=== PATIENT | male | born 1950 | race Two or more races ===

== ENCOUNTER 2016-06-21 10:34 | Emergency (ER) | payer OTHER ==
[~2016-06-21] VITALS: Ht 177.8 cm; Wt 74.5 kg
[~2016-06-21 10:34] MED LIST: ALEN70TA15 PO; ASPI81TA3 PO; CALC600T5 PO; HYDR-762 PO; LOSA100T7 PO; ROTI1PAT7 TD; SUMA50TA3 PO
[2016-06-21 10:36] VITALS: Ht 177.8 cm; Wt 74.5 kg
[2016-06-21] MEDS ORDERED: morphine 4 MG/ML VIAL IV STA ×2 (11:11→13:41)
[2016-06-21] MEDS ORDERED: ONDANSETRON 4 MG INJ IV STA (11:11)
--- NOTE | 2016-06-21 12:32 | RADRPT ---
PROCEDURE: Right knee series. CLINICAL INDICATION: Right knee pain TECHNIQUE: Three views of the right knee are available for review. COMPARISON: None available FINDINGS: There is normal mineralization and alignment of the bones of the right knee. No acute fracture or d islocation is identified. No joint effusion is seen. Overlying soft tissues are unremarkable. IMPRESSION: 1. Unremarkable right knee x-ray series. RPTAT: KK .Cristian Perez MD, MD Date Time Electronically viewed and signed by .Cristian Perez MD, MD on 06/21/2016 12:31 .B/
--- NOTE | 2016-06-21 12:33 | RADRPT ---
PROCEDURE: Left knee series. CLINICAL INDICATION: Left knee pain TECHNIQUE: Three views of the left knee. COMPARISON: None available FINDINGS: There is normal mineralization and alignment of the left knee. No acute fracture or dislocation is seen. Joint spaces are well maintained. There is no evidence of osteophyte formation or erosion. No definite joint effusion is seen. The soft tissues are within normal limits. IMPRESSION: 1. Unremarkable left knee x-ray series. Of text Medical .Cristian Perez MD, Date Time Electronically viewed and signed by .Cristian Perez MD, on 06/21/2016 12:32 .B/
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
[2016-06-21] MEDS ORDERED: ETOD300C26 PO (14:59)
[2016-06-21] MEDS ORDERED: OXYC-279 PO (15:00)
[2016-06-21] MEDS ORDERED: ONDA4TAB8 PO (15:01)
[2016-06-21 15:03] VITALS: BP 179/74; PULSE 79; RESP 17
== END 2016-06-21 15:10 | disposition home or self-care (01) ==
LOC: E/R 10:34
DX: S09.90XA Unspecified injury of head, initial encounter (principal); I10 Essential (primary) hypertension; F17.210 Nicotine dependence, cigarettes, uncomplicated; S80.812A Abrasion, left lower leg, initial encounter; S89.92XA Unspecified injury of left lower leg, initial encounter; S89.91XA Unspecified injury of right lower leg, initial encounter; V49.40XA Driver injured in collision with unspecified motor vehicles in traffic accident, initial encounter; Z79.82 Long term (current) use of aspirin
CPT/HCPCS: 70450; 70486; 71250; 72040; 73562; 93005; 96374; 96375; 96376; J2270; J2405; Z7502

== ENCOUNTER 2016-06-24 19:18 | Emergency (ER) | payer OTHER ==
[~2016-06-24] VITALS: Ht 162.6 cm; Wt 74.0 kg
[~2016-06-24 19:18] MED LIST changes: +ETOD300C26 PO; +ONDA4TAB8 PO; +OXYC-279 PO
[2016-06-24 19:20] VITALS: Ht 162.6 cm; Wt 74.0 kg
[2016-06-24] MEDS ORDERED: OXYC-209 PO (20:07)
[2016-06-24] MEDS ORDERED: OXYCODONE/ACETAMINOPHEN (10/325) TAB PO ONE (20:30)
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
== END 2016-06-24 20:21 | disposition home or self-care (01) ==
LOC: FTE 19:18
DX: R07.9 Chest pain, unspecified (principal); I10 Essential (primary) hypertension; G20 Parkinson's disease; F17.210 Nicotine dependence, cigarettes, uncomplicated; Z79.82 Long term (current) use of aspirin
CPT/HCPCS: Z7502; Z7610; 99283

== ENCOUNTER 2017-05-23 07:36 | Inpatient (IN) | payer MEDICARE, OTHER ==
[2017-05-23] VITALS (13 sets, daily range): BP systolic 123–171; BP diastolic 68–78; PULSE 58–72; RESP 16–22; Ht 177.8 cm; Wt 69.3 kg
[~2017-05-23] VITALS: Ht 177.8 cm; Wt 69.3 kg
--- NOTE | 2017-05-23 06:48 | HPN ---
Date/Time of Note Date/Time of Note DATE: 05/23/17 TIME: 06:48 Interval H&P Admission Note Pt. seen H&P reviewed: No system changes MARIBELL LOYOLA MD May 23, 2017 06:48
[~2017-05-23 07:36] MED LIST changes: -ETOD300C26 PO; +ETOD300C29 PO; +OXYC-209 PO
[2017-05-23] MEDS ORDERED: AMAN100C65 PO (08:26)
[2017-05-23] MEDS ORDERED: ATOR10TA65 PO (08:27)
[2017-05-23] MEDS ORDERED: AMIT25TA9 PO (08:27)
[2017-05-23] MEDS ORDERED: FLUT200B INHALATION (08:27)
[2017-05-23] MEDS ORDERED: SENN-53 PO (08:29)
[2017-05-23] MEDS ORDERED: CALC1TAB79 PO (08:29)
[2017-05-23] MEDS ORDERED: DOCU-159 PO (08:30)
[2017-05-23] MEDS ORDERED: CYAN500T46 PO (08:30)
[2017-05-23] MEDS ORDERED: IBUP-1542 PO (08:31)
[2017-05-23] MEDS ORDERED: LACT10SO5 PO (08:31)
[2017-05-23] MEDS ORDERED: ALBU18HF INHALATION (08:39)
[2017-05-23] MEDS ORDERED: TIZA2TAB PO (08:39)
[2017-05-23] MEDS ORDERED: TIOT18CA INHALATION (08:40)
[2017-05-23] MEDS ORDERED: TERI2.4P SQ (08:40)
[2017-05-23] MEDS ORDERED: D-ME473S2 PO (08:41)
[2017-05-23] MEDS ORDERED: OXYC-209 PO (08:42)
[2017-05-23] MEDS ORDERED: ONDA4TAB8 PO (08:42)
[2017-05-23] MEDS ORDERED: OMEP20CA16 PO (08:43)
[2017-05-23] MEDS ORDERED: LINA145C PO (08:44)
[2017-05-23] MEDS ORDERED: CEFAZOLIN 2 GM/50 ML (PMX) 50 ML IVPB SCH (08:46)
[2017-05-23] MEDS ORDERED: traMADol 50 MG TAB PO SCH (08:47)
[2017-05-23] MEDS ORDERED: GABAPENTIN 300 MG CAP PO SCH (08:47)
[2017-05-23] MEDS ORDERED: DEXAMETHASONE 2 MG TAB PO SCH (08:48)
[2017-05-23] MEDS ORDERED: ROPIVACAINE 0.5 % 30 ML VIAL ONE (09:34)
[2017-05-23] MEDS ORDERED: PROPOFOL 20 ML ONE (09:35)
[2017-05-23] MEDS ORDERED: LIDOCAINE 2% (SDV) 5 ML INJ ONE (09:35)
[2017-05-23] MEDS ORDERED: MIDAZOLAM 1 MG/ML 2 ML INJ IV PRN (10:30)
[2017-05-23] MEDS ORDERED: METOCLOPRAMIDE 10 MG INJ IV PRN (10:30)
[2017-05-23] MEDS ORDERED: FENTAnyl 50 MCG/ML VIAL IV PRN ×3 (10:30)
[2017-05-23] MEDS ORDERED: DIPHENHYDRAMINE 50 MG INJ IV PRN (10:30)
[2017-05-23] MEDS ORDERED: hydrALAzine 20 MG INJ IV PRN (10:30)
[2017-05-23] MEDS ORDERED: OXYCODONE/ACETAMINOPHEN (5/325) TAB PO PRN ×2 (10:30)
[2017-05-23] MEDS ORDERED: MEPERIDINE 25 MG INJ IV PRN (10:30)
[2017-05-23] MEDS ORDERED: EPHEDrine SULFATE 50 MG/5 ML SYG IV PRN (10:30)
[2017-05-23] MEDS ORDERED: ONDANSETRON 4 MG INJ IV PRN (10:30)
[2017-05-23] MEDS ORDERED: LABETALOL HCL 20MG INJ IV PRN (10:30)
[2017-05-23] MEDS ORDERED: HYDROmorphONE (0.2 MG/ML) 10ML SYG IV PRN ×3 (10:30)
[2017-05-23] MEDS ORDERED: CEFAZOLIN 1 GM INJ ONE (11:11)
--- NOTE | 2017-05-23 11:34 | PDOCDIS ---
Discharge Instructions DIAGNOSIS Discharge Diagnosis Impingement of the right shoulder CONDITION Patient Condition: Good HOME CARE INSTRUCTIONS: Diet Instructions: Regular ACTIVITY: Activity Restrictions: Slowly Increase Activity Keep Limb Elevated Bathing Restrictions: Shower FOLLOW UP/APPOINTMENTS Follow-up Plan 2 weeks after surgery. SCHOOL/WORK RELEASE May return to School/Work with: With Restrictions School/Work Release Comment: Use the sling for 2 weeks as necessary. May remove dressing in 48 hours MARIBELL Gasca MD May 23, 2017 11:34
[2017-05-23] MEDS ORDERED: BACITRACIN/POLYMYXIN 28.35 GM OINT TOP ONE (11:36)
--- NOTE | 2017-05-23 11:38 | OPR ---
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 Assistance was necessary as a result of the highly technical nature of this operation. When performing an open total shoulder replacement, it is critical to have a trained marketing assistant who is an expert in handling the extremity and assisting the surgeon in tasks such as suture management and knot- tying techniques as well as implants. This assistance cannot be performed by a aviation survival technician, as it is considered an integral part of the procedure and the marketing assistant should be compensated for their time. PROCEDURE IN DETAIL: Following the administration of general anesthesia supplemented with a peripheral nerve block for postoperative pain control, the patient was examined under anesthesia. Examination of the right shoulder revealed very significant stiffness including a forward flexion of 120 with abduction of 90 and external rotation of 60 with no significant bony impingement. The patient was then placed in the beach chair position. Sterile prep and drape was then undertaken. Anterior and posterior glenohumeral portals were established. Diagnostic arthroscopy revealed that there was significant severe synovitis in both the subacromial space and along the posterior aspect of the joint. An extensive synovectomy was then performed with debridement of the soft tissue impingement lesions that were noted. Evaluation of the glenoid and humeral total shoulder components that were in place revealed no significant wear of the polyethylene liner and no significant evidence of any loosening or infectious process. The joint was then thoroughly irrigated and the wound closed using 4-0 Monocryl. A sling was then applied. The patient was awakened and transported to recovery in a stable condition. Minimal blood loss was noted. MARIBELL LOYOLA MD May 23, 2017 11:38
[2017-05-23] MEDS ORDERED: TRANEXAMIC ACID 1,000 MG in SOD CHLORIDE 0.9% 100 ML IVPB ONE (12:00)
[2017-05-23] MEDS ORDERED: BUPIVACAINE 0.5% (SDV) 30 ML, morphine SULFATE (PF) 8 MG, EPINEPHrine 0.3 MG, KETOROLAC... IRR SCH ×7 (12:00)
== END 2017-05-23 11:35 | disposition home or self-care (01) | DRG 512 ==
LOC: REC 07:36
PROVIDERS: ADMIT Orthopaedic Surgery; ATTEND Orthopaedic Surgery
PROC: 0RBJ4ZZ Excision of Right Shoulder Joint, Percutaneous Endoscopic Approach (ICD-10-PCS; principal; 2017-05-23 09:30)
DX: M65.811 Other synovitis and tenosynovitis, right shoulder (principal); M25.811 Other specified joint disorders, right shoulder; Z96.611 Presence of right artificial shoulder joint
CPT/HCPCS: J0171; J0690; J0735; J1885; J2274; J2795; J3370